=== PATIENT | female | born 1980 | race Caucasian/White ===

== ENCOUNTER → 2017-07-10 | Outpatient (CLI) | payer MEDICAID ==
[~2017-07-10] MED LIST: ALBUTEROL-200 PUFFS/ IH; AMOXIL500 M1 PO; BACTERICIN500 U/GM TP; BACTRIM DS 8001 TA1 PO; BACTRIM DS 8001 TAB PO; BUPRENORPHINE SL; CLINDAMYCIN HC300 MG PO; CLINDAMYCIN150 MG PO; EFFEXOR25 MG PO; FLEXERIL10 M1 PO; FLEXERIL5 MG PO; GABAPENTIN 400400 M1 PO; HYDROCODONE-APA1 TA1 PO; HYDROCODONE1 TABLET PO; IBU-8800 MG PO; LORTAB 5/500 501 TAB PO; MOTRIN600 M1 PO; NALOXONE SL; NAPROSYN 500MG500 MG PO; NOMEDS *; PERCOCET 10 MG1 EACH PO; PERCOCET 5/3251 EACH PO; PHENERGAN 25MG.25 M1 PO; SEPTRA DS 800 M1 TAB PO; SULFAMETHOXAZOL1 TA6 PO; ULTRAM50 MG PO; VICODIN 5/500 T1 TAB PO; VOLTAREN75 MG PO; XANAX 0.5MG TA0.5 MG PO; XANAX 1MG TABLET1 MG PO; ZOFRAN ODT4 MG PO
--- NOTE | 2017-07-10 16:39 | RADIOLOGY REPORT PS360 ---
HAND-RT 3 VIEWS HISTORY: Follow-up fracture RIGHT HAND PAIN ORDERING PHYSICIAN: Kyle Vela MD PATIENT AGE: 37 years COMPARISON: 07/07/2017 FINDINGS: Study is obtained through a splint which partially obscures the fracture. There is been no significant change in the distal fifth metacarpal fracture with 3 mm anterior displacement and anterior radial angulation of the distal fracture fragment. IMPRESSION: No change displaced distal fifth metacarpal fracture
== END ==
LOC: RAD 16:06
DX: M79.641 Pain in right hand (principal)

== ENCOUNTER 2017-07-22 14:42 | Inpatient (IN) | payer MEDICAID ==
[~2017-07-22] VITALS: Ht 157.5 cm; Wt 69.9 kg
--- NOTE | 2017-07-22 15:26 | Urgent Treatment Center Report ---
See Addendum History of Present Issue Date/Time Seen by Provider 07/22/17 1525 Visit Reason Pt arrived:Walked Presenting Problem:PT C/O BITE ON THE TOP OF HER LEFT HAND THAT IS RED, SWOLLEN, AND WARM TO TOUCH. PT ADVISES THAT IT HAS ALSO BEEN DRAINING X2 DAYS Location if Accident: Onset of symptoms date/time:/ or onset unknown for:MEDICAL HX UNKNOWN Have you (or family members/close friends) recently traveled outside the [place]? N If Yes, where/when: Have you had exposure to infectious disease within the past month? TB? Other? Specify: c/o left hand pain, swelling, redness. First noticed "what looked like a bug bite" to back of hand 2 days ago. Successfully "squeezed out thick white stuff" yesterday and swelling seemed better. woke up this morning with hand swelling worse and now extending into fingers, wrist and forearm. No fever but aches and chills. 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 Denies possible cause. Hasn't taken or tried anything else for symptoms. "I know it needs cut open and that is what I am here for. That, something for pain and antibiotics." Source patient Exam Limitations clinical condition (pain) ALLERGIES Coded Allergies: cephalexin (07/23/16) Home Medications Active Scripts Ondansetron (Zofran 4MG Odt) 4 MG PO Q6HP PRN NAUSEA AND VOMITING #20 TAB Prov: 07/23/16 SULFAMETHOXAZOLE W/TRIMETHOPRI (Bactrim Ds Tab) 2 TAB PO BID #28 TAB Prov: 09/05/14 HYDROCODONE 5MG/APAP 325MG (Hydrocodon-Acetaminophen 5-325) 1 TAB PO Q6HP PRN severe pain #7 TAB Prov: 09/05/14 Reported Medications Venlafaxine Hydrochloride (Effexor 25MG) 75 mg PO BID Albuterol (Albuterol-Hfa Inhaler) 1-2 PUFFS IH PRN #1 INH Alprazolam (Xanax 1MG) 1 MG PO TID Gabapentin (Gabapentin 400MG Capsule) 400 MG PO TID #90 BUPRENORPHINE HCL/NALOXONE HCL (Suboxone 2 MG-0.5 MG Sl Film) 2 SL History Medical History General CAD? No Angina: No [place]: No Hypertension? No Hyperlipidemia? No CHF? No DVT? No PE? No COPD? No Asthma? Yes Anemia? No GERD? No Gastric ulcers? No GI Bleed? No Hernia? No Thyroid Problems? No Hypothyroidism? No CVA? No Seizures? No Diabetes? No Renal Insuffiency? No UTI? No Stones? No BPH? No GB Disease: No Nephritic Syndrome? No Asplenia? No Hepatitis? Yes Sickle Cell Disease? No Arthritis? No Migraines? No Cataracts? No Glaucoma? No MRSA? Yes HIV? No TB? No Anxiety? No Depression? No Cancer? No More? No Immunization HX DT/Tetanus 11/04/10 Flu NEVER Pneumonia NEVER Surgical Hx Previous Surgery?Y L.THUMB SURGERY LEFT HAND DRAIN TUBE RIGHT SIDE FOR ABSCESS ABOVE KIDNEY Family History Family HX Diabetes No CAD Yes Hypertension Yes Hyperlipidemia No Cancer Yes TB No Social History Smoking Hx Smoker: Current Every Day Smoker Tobacco: Yes Type Cigarettes Packs/day < 1 Pack Alcohol Alcohol: No Review of Systems All Other Systems Reviewed and Negative Constitutional see HPI Musculoskeletal other (limited ROM left digits&wrist) Skin see HPI Psychiatric/Neurological paresthesia (left ring and middle fingers) Physical Exam Vital Signs Vital Signs Date Time Temp Pulse Resp B/P Pulse O2 O2 Flow FiO2 Ox Delivery Rate 07/22 1626 18 07/22 1504 98.8 94 18 122/82 98 General Appearance mild distress Respiratory Status No: respiratory distress. Cardiovascular no peripheral edema Peripheral Pulses Pulses normal Yes (radial) Extremities significant swelling dorsal surface left hand surrounding approx 2cm cutanous abscess at dorsal surface 4th/5th MCP extending distally to tips of 3rd & 4th digits as well as proximally to include wrist and a fourth of forearm; erythematous, hot; slightly reduced ROM 3rd & 4th digits Neurologic alert Skin intact, see extremity Medical Decision Making LABS/Meds/Orders Pt receiving controlled substance in ED? Yes Steve was queried for this patient? No Reason not queried - emergent pt cond=no time Risks/benefits of using a controlled substance for treatment were discussed w/pt by me Results/Orders Laboratory Tests 07/22/17 1630: WBC Pending, RBC Pending, Hgb Pending, Hct Pending, MCV Pending, RDW Pending, Plt Count Pending, Gran % Pending, Gran # Pending, Lymphocytes % Pending, Eosinophils % Pending, Basophils % Pending, Lymphocytes # Pending, Eosinophils # Pending, Basophils # Pending, PUBS MCHC Pending, MCH Pending Current Medication Orders Sig/Huyen Start time Last Medication Dose Route Stop Time Status Admin Hydrocodone Bitart/ 0 .STK-MED ONE 07/22 1622 DC Acetaminophen PO Hydrocodone Bitart/ 1 TAB ONCE ONE 07/22 1615 DC 07/22 Acetaminophen PO 07/22 1616 1626 Orders Procedure Date/time Status Decision to admit 07/22 1633 Active HAND-LT-3 VIEWS 07/22 161 Active CBC WITH AUTO DIFF 07/22 161 Active Consult MD Physician Consult 1 Consult/PCP Dr. Garcia, surgery Time Called 1528 Reason Pt. Condition Comments Called office. no surgeon in office today. Dr. Garcia hr shared services consultant. Office staff suggest having him paged. 1531: Dr. Garcia returned call. given location, discuss with ortho but if ortho not available, send to ER for possible admission w/ involvement of ortho and surgery. Physician Consult 2 Consult/PCP Dr. Lambert, ortho Time Called 1532 Reason Pt. Condition Comments Called ortho office. Dr. Barr out all week and Dr. Lambert in surgery this afternoon. Physician Consult 3 Consult/PCP Dr. Langley, ER MD Time Called 1535 Reason Pt. Condition Comments Discussed HPI, PMHx, exam and discussions with ortho and surgery. Dr. Langley Came to [facility] to evaluate pt. Agrees pt needs admitted w/ ortho consult. Suggest calling Dr. Villaseñor. Pt refusing admission and starts to leave AMA. "I just want this cut open today. I will go to . I will cut it open myself." Dr. Langley tries to calm pt and suggest at least CBC, xray and to see if ortho will come to bedside between cases and examine pt. Dr. Langley discusses the seriousness of this and the likelihood of it requiring a surgeon for I&D. Pt still irrate and wants to leave. "This is ridiculous. I have had enough to know it needs cut open and to know how to cut it open myself." Dr. Langley suggest talking to ortho and Dr. Villaseñor but if difficulty, sending pt to ER and she will work on admission. Dr. Langley returned to ER. Pt walked out of [facility] saying she was calling her to discuss this and didn't know if she would be staying or not. Refused to sign any papers at this time "because I don't know if I will stay". At this time, it is not known if pt will return. Tried to encourage tetanus vaccine. Pt refusing tetanus vaccine. Physician Consult 4 Consult/PCP Dr. Villaseñor, PCP Time Called 1615 Reason Admission Comments Discussed HPI, PMHx, exam, discussions w/ surgery, ortho and Dr. Langley, ER MD. Willing to admit. Request that I call care management, send patient upstairs and then he would place his own orders. Progress [facility] Progress Notes 1 Date 07/22/17 Time 1600 Comment pt returned to unit. Would like pain medication and wants me to discuss admission w/ Dr. Villaseñor, her primary care provider. [facility] Progress Notes 2 Date 07/22/17 Time 1620 Comment Care Mgmnt paged [facility] Progress Notes 3 Date 07/22/17 Time 1632 Comment House called. Aware care mgmt did not return call. marley aware of plan for admission. Rm 211. Departure Departure Time of Disposition 1703 Disposition Still a Patient Clinical Impression Primary Impression: Abscess of left hand including fingers Secondary Impressions: Cellulitis of multiple sites of left hand and fingers Condition STABLE Referrals River Villaseñor MD (Family) Additional Instructions admit to room 211 at 1705
[2017-07-22 17:00] LABS: LYMPH # 1.3 K/mm3 (0.7-4.5); LYMPH % 15.5 % (10-50.0)
[2017-07-22 17:07] LABS: HEMOGLOBIN 12.1 g/dL (12.2-16.2)
--- NOTE | 2017-07-22 17:15 | RADIOLOGY REPORT PS360 ---
HAND-LT-3 VIEWS HISTORY: Pain and swelling abscess left hand x 2-3 days ORDERING PHYSICIAN: River Villaseñor MD PATIENT AGE: 37 years COMPARISON: None FINDINGS: There is diffuse soft tissue swelling along the dorsum of the left hand. No fracture or dislocation. No lytic changes. No soft tissue gas. No radio opaque foreign body. There is an old fracture to base of the first metacarpal. IMPRESSION: Diffuse soft tissue swelling with no acute bony pathology
--- NOTE | 2017-07-22 17:15 | RADIOLOGY REPORT PS360 ---
HAND-LT-3 VIEWS HISTORY: Pain and swelling abscess left hand x 2-3 days ORDERING PHYSICIAN: River iVllaseñor MD PATIENT AGE: 37 years COMPARISON: None FINDINGS: There is diffuse soft tissue swelling along the dorsum of the left hand. No fracture or dislocation. No lytic changes. No soft tissue gas. No radio opaque foreign body. There is an old fracture to base of the first metacarpal. IMPRESSION: Diffuse soft tissue swelling with no acute bony pathology
[2017-07-22 17:23] VITALS: BP 141/88
[2017-07-22 17:38] VITALS: BP 141/88
--- NOTE | 2017-07-22 18:10 | HISTORY AND PHYSICAL REPORT ---
Demographics: Admit date: 07/22/17 Chief complaint: Left hand swelling and pain PRIMARY DIAGNOSIS: ABSCESS & CELLULITIS OF LEFT HAND Allergies: Coded Allergies: cephalexin (07/23/16) History of present illness: History of present illness: 37-year-old white female with history of "lots of staph infections" who presented to the urgent treatment Center with left hand swelling, abscess formation and pain. Had red streaking into the dorsum of the hand from a puncture wound site on the dorsum of the left hand between the fourth and fifth fingers, and was admitted to hospital for IV antibiotics, orthopedic consultation and further diagnostic testing. Past medical history: Family HX Diabetes No CAD Yes Hypertension Yes Hyperlipidemia No Cancer Yes TB No Immunization HX DT/Tetanus 11/04/10 Flu NEVER Pneumonia NEVER TB Test in last year No General CAD? No Angina: No [place]: No Hypertension? No Hyperlipidemia? No CHF? No DVT? No PE? No COPD? No Asthma? Yes Anemia? No GERD? No Gastric ulcers? No GI Bleed? No Hernia? No Thyroid Problems? No Hypothyroidism? No CVA? No Seizures? No Diabetes? No Renal Insuffiency? No UTI? No Stones? No BPH? No GB Disease: No Nephritic Syndrome? No Asplenia? No Hepatitis? Yes Sickle Cell Disease? No Arthritis? No Migraines? No Cataracts? No Glaucoma? No MRSA? Yes HIV? No TB? No Anxiety? Yes Depression? No Cancer? No More? No Past Surgical HX Previous Surgery?Y L.THUMB SURGERY LEFT HAND DRAIN TUBE RIGHT SIDE FOR ABSCESS ABOVE KIDNEY Current home meds: Reported Medications Albuterol (Albuterol-Hfa Inhaler) 1-2 PUFFS IH PRN #1 INH Social Hx: Smoking HX Tobacco Yes Type Cigarettes Packs/day < 1 PACK Alcohol Alcohol: No Hx of Drug Use Drug Use? Yes Drug(s) of Choice: previous use per patient Patien't marital status is single Patient's support system is fair Review of systems: Constitutional fever, malaise. Respiratory No: no symptoms reported. Cardiovascular No no symptoms reported Gastrointestinal/Abdominal No no symptoms reported Genitourinary no symptoms reported. Musculoskeletal see HPI. Neurological No: see HPI. Exam: Lab data for last 24 hours: Laboratory Tests 07/22/17 1630: Sodium 136, Potassium 2.9 *L, Chloride 103, Carbon Dioxide 23, BUN 9, Creatinine 0.7, Estimated Creat Clear 129, Estimated GFR (MDRD) 94, Glucose 94, Calcium 8.0 L, Total Bilirubin 0.5, AST 59 H, ALT 112 H, Alkaline Phosphatase 70, Total Protein 6.8, Albumin 3.2 L, Globulin 3.6 H, Albumin/Globulin Ratio 0.9 L, WBC 8.4, RBC 4.22, Hgb 12.1 L, Hct 36.5 L, MCV 86.7, RDW 14.1, Plt Count 374, MPV 7.5, Gran % 77.4, Gran # 6.5, Lymphocytes % 15.5, Monocytes % 5.8, Eosinophils % 1.1, Basophils % 0.2, Lymphocytes # 1.3, Monocytes # 0.5, Eosinophils # 0.1, Basophils # 0.0, PUBS MCHC 32.7, MCH 28.3 Microbiology 07/22 UNK BLOOD: Anaerobic Blood Culture - ORD 07/22 UNK BLOOD: Aerobic Blood Culture - ORD 07/22 UNK BLOOD: Anaerobic Blood Culture - ORD 07/22 UNK BLOOD: Aerobic Blood Culture - ORD Admission vital signs: 1ST Vital Signs Result Date Time Pulse Ox 98 07/22 1504 B/P 122/82 07/22 1504 Temp 98.8 07/22 1504 Pulse 94 07/22 1504 Resp 18 07/22 1504 O2 Delivery ROOM AIR 07/22 1723 Additional information: Patient is alert. Oriented. Cardiopulmonary exam unremarkable. Abdomen soft nontender, she has no edema. No neurologic deficits. Left hand is reddened and swollen with abscess formation as described in history of present illness. Plan: Problem List 1. Cellulitis of multiple sites of left hand and fingers 2. Abscess of left hand including fingers 3. Hypokalemia Plan: Admit to hospital. Orthopedic consultation. Patient has long history of substance abuse and mental illness, my office records indicate she takes Abilify but she did not report this to the nursing intake staff. Urine drug screen given history of IV drug use. Somewhat suspicious location/ mechanism of abscess. Hypokalemia noted. Replace this orally. at 8621
--- NOTE | 2017-07-22 18:42 | CONSULT NOTE ---
Consultation findings: Referring physician: Dr. Villaseñor Date of examination: 07/22/17 Time of examination: 183 Exam findings: I went up to see the patient on second floor for orthopedic consultation regarding her left hand cellulitis/abscess. Patient is not in her room and the staff on the floor does not know her whereabouts. Apparently she has returned from the x-ray a short while ago and they think she may have gone out of hospital after that without informing anybody. I was called again 15-20 minutes later and was informed that the patient has returned to the floor. 07/22/2017; 19:00 Chief complaint: Left hand swelling and pain PRIMARY DIAGNOSIS: CELLULITIS/ ABSCESS, LEFT HAND Allergies: cephalexin (07/23/16) History of present illness: Patient is a 37-year-old female admitted to hospital from the urgent treatment center for management of cellulitis/abscess left hand. She is giving a history of pain and swelling over the back of her left hand starting a couple of days ago apparently following a spider bite. She says she has history of "lots of staph infections" in the past requiring surgical drainage. She reports little bit of discharge from it yesterday but none today. She reports a throbbing pain over the hand and also reports intermittent fevers. She has history of past IV drug abuse but says he has not been injecting herself this time. She localizes the swelling to the back of the hand at the level of the fifth metacarpal head. She also reports surroundings redness and swelling on the hand and extending onto the fourth and fifth fingers. She was admitted to hospital for IV antibiotics, orthopedic consultation and further diagnostic testing. Past medical history: Family HX Diabetes No CAD Yes Hypertension Yes Hyperlipidemia No Cancer Yes TB No Immunization HX DT/Tetanus 11/04/10 Flu NEVER Pneumonia NEVER TB Test in last year No General CAD? No Angina: No [place]: No Hypertension? No Hyperlipidemia? No CHF? No DVT? No PE? No COPD? No Asthma? Yes Anemia? No GERD? No Gastric ulcers? No GI Bleed? No Hernia? No Thyroid Problems? No Hypothyroidism? No CVA? No Seizures? No Diabetes? No Renal Insuffiency? No UTI? No Stones? No BPH? No GB Disease: No Nephritic Syndrome? No Asplenia? No Hepatitis? Yes Sickle Cell Disease? No Arthritis? No Migraines? No Cataracts? No Glaucoma? No MRSA? Yes HIV? No TB? No Anxiety? Yes Depression? No Cancer? No More? No Past Surgical HX Previous Surgery?Y L.THUMB SURGERY LEFT HAND DRAIN TUBE RIGHT SIDE FOR ABSCESS ABOVE KIDNEY Current home meds: Albuterol (Albuterol-Hfa Inhaler) 1-2 PUFFS IH PRN #1 INH Social Hx: Smoking HX Tobacco Yes Type Cigarettes Packs/day < 1 PACK Alcohol Alcohol: No Hx of Drug Use Drug Use? Yes Drug(s) of Choice: previous use per patient Patien't marital status is single Patient's support system is fair Review of systems: Constitutional: fever, malaise. Respiratory: No symptoms reported. Cardiovascular: No symptoms reported Gastrointestinal/Abdominal: No symptoms reported Genitourinary: no symptoms reported. Musculoskeletal: see HPI. Neurological: No symptoms reported. Exam: General Appearance: No acute distress; well built ENT: mucous membranes moist Neck: normal inspection, non-tender, supple, full range of motion, trachea central Respiratory: trachea midline, chest symmetrical, non tender; No respiratory distress. Normal breath sounds bilaterally, lungs clear to auscultation. Cardiovascular: regular rate/rhythm, no peripheral edema, no gallop, no JVD, no murmur, no rub, normal peripheral pulses Gastrointestinal: Abdomen is soft and nontender, normal bowel sounds over all 4 quadrants, no organomegaly, no CVA tenderness. Neurologic: alert, normal exam, oriented x 3; cranial nerves II-12: intact Mental status: normal mood/affect Skin: intact, multiple well-healed scars over both upper extremities; normal color, warm/dry On examination of her left hand, she has diffuse redness and swelling over the back of the left hand and over the fourth and fifth fingers. There is a more localized swelling over the fifth metacarpal head and neck. She has diffuse tenderness over the back of the hand with more severe tenderness on the localized swelling. The swelling over the fifth metacarpal neck is fluctuant. She has couple of villasenor over the swelling likely from the bite. There is no active discharge at this time. The hand is warm to touch. She has fairly good range of wrist and finger movements. Radial and ulnar pulses are palpable 2+ bilaterally. Capillary refill is brisk. Sensation is grossly intact. Multiple well-healed scars noted all over her arm. Imaging: FINDINGS: There is diffuse soft tissue swelling along the dorsum of the left hand. No fracture or dislocation. No lytic changes. No soft tissue gas. No radio opaque foreign body. There is an old fracture to base of the first metacarpal. IMPRESSION: Diffuse soft tissue swelling with no acute bony pathology Laboratory Tests 07/22/17 1630: Sodium 136, Potassium 2.9 *L, Chloride 103, Carbon Dioxide 23, BUN 9, Creatinine 0.7, Estimated Creat Clear 129, Estimated GFR (MDRD) 94, Glucose 94, Calcium 8.0 L, Total Bilirubin 0.5, AST 59 H, ALT 112 H, Alkaline Phosphatase 70, Total Protein 6.8, Albumin 3.2 L, Globulin 3.6 H, Albumin/Globulin Ratio 0.9 L, WBC 8.4, RBC 4.22, Hgb 12.1 L, Hct 36.5 L, MCV 86.7, RDW 14.1, Plt Count 374, MPV 7.5, Gran % 77.4, Gran # 6.5, Lymphocytes % 15.5, Monocytes % 5.8, Eosinophils % 1.1, Basophils % 0.2, Lymphocytes # 1.3, Monocytes # 0.5, Eosinophils # 0.1, Basophils # 0.0, PUBS MCHC 32.7, MCH 28.3 Microbiology 07/22 1735 BLOOD: Anaerobic Blood Culture - RECD 07/22 1735 BLOOD: Aerobic Blood Culture - RECD 07/22 1735 BLOOD: Anaerobic Blood Culture - RECD 07/22 1735 BLOOD: Aerobic Blood Culture - RECD 1ST Vital Signs Result Date Time Pulse Ox 98 07/22 1504 B/P 122/82 07/22 1504 Temp 98.8 07/22 1504 Pulse 94 07/22 1504 Resp 18 07/22 1504 O2 Delivery ROOM AIR 07/22 1723 Impression: 1. Cellulitis, left hand 2. Abscess, left hand 3. Hypokalemia Recommendations: I reviewed the clinical, x-ray and laboratory findings with the patient. Clinically she has abscess over the dorsum of the hand with surrounding cellulitis. Her white cell count is within normal range at 8.4 with a normal differential count. Her serum potassium is low at 2.9. She is scheduled to receive IV vancomycin. I have discussed the diagnosis, natural history and management options including both nonsurgical and surgical. Given the localized abscess on the back of the hand, I have recommended an incision and drainage. I have discussed the procedure, risks and benefits and alternatives in detail. The complications discussed include but are not limited to injury to blood vessels, nerves, tendons and ligaments, bleeding, incisional scar (cosmesis), continued pain, adhesions, hypertrophic scarring, DVT/PE, finger stiffness, CRPS (complex regional pain syndrome- pain, sensory and temperature changes, swelling and stiffness), painful scar, incomplete relief of pain, incomplete return of function and likely need for further surgery in future and also the risks of anesthesia including heart attack, stroke, and . I have discussed how there is a small but real possibility of loss of use of the arm, loss of the limb [ amputation] or loss of life itself. I have also explained how additional surgery may be required if there are any complications or the condition fails to improve. We have also discussed the postoperative pain management, recovery and rehabilitation, the likely need for physical/hand therapy, the possibility of stiffness, chronic pain and we've also discussed the option of nonsurgical treatment. The patient expressed a full understanding and has asked appropriate questions. All her questions were answered by me and she verbalized a good understanding. She desires to proceed with the proposed surgery of incision and drainage of abscess left hand. She has eaten dinner tonight and also has hypokalemia. Therefore I would take her to surgery tomorrow morning. I have advised elevation, continuation of IV antibiotics, n.p.o. from midnight, repeat serum potassium levels tomorrow. Medical management as per Dr. Villaseñor.
[2017-07-22 19:20] VITALS: BP 116/64
[2017-07-22 19:30] VITALS: BP 116/64
--- NOTE | 2017-07-22 23:23 | RADIOLOGY REPORT PS360 ---
CHEST(2 VIEWS-NOT PORTABLE) HISTORY: fever ORDERING PHYSICIAN: River Villaseñor MD PATIENT AGE: 37 years COMPARISON: None available FINDINGS: The cardiomediastinal silhouette and pulmonary vascularity are within normal limits. The lungs are clear without infiltrates, suspicious nodules, or pleural effusions. Probable nipple artifact left lower lung zone. Garment artifact is present No acute bony abnormalities. IMPRESSION: No acute finding
[2017-07-23] VITALS (13 sets, daily range): BP systolic 115–180; BP diastolic 63–100
[2017-07-23 06:42] LABS: LYMPH # 1.3 K/mm3 (0.7-4.5); LYMPH % 22.2 % (10-50.0)
[2017-07-23 06:51] LABS: HEMOGLOBIN 10.7 g/dL (12.2-16.2)
--- NOTE | 2017-07-23 07:12 | PHARMACY CLINIC NOTE ---
Patient Demographics Patient Demographics Admission date: 07/22/17 Date: 07/23/17 Time: 0712 Allergies Coded Allergies: cephalexin (07/23/16) HEIGHT- FT: 5 IN: 2.00 K.882 VTE General Information Labs: Laboratory Tests 07/23 07/22 0620 1630 Hematology Hgb (12.2 - 16.2 g/dL) 10.7 L 12.1 L Hct (37.0 - 47.0 %) 32.2 L 36.5 L Plt Count (142 - 424 K/mm3) 196 374 Disclaimer The following section includes nursing documentation that has been pulled in for pharmacy review. Patient's VTE score: 2 Patient's VTE Risk: VERY LOW RISK Clinical trial participant? No VTE prophylaxis NQF [id number] VTE prophylaxis ordered? Yes Type of prophylaxis/treatment: VIVIAN at 0712
--- NOTE | 2017-07-23 07:58 | ACUTE CARE PROGRESS NOTE (QUA) ---
Progress Notes Subjective Date 07/23/17 Time 0740 Note Patient continues to have significant LEFT hand pain. She was seen by Dr. Lambert last evening with plan for incision and drainage of LEFT hand abscess today. She has not had any fevers through the night. Alert and oriented 3. S1, S2, no murmurs. No lower extremity edema. Pulses 2+ bilaterally. Lung sounds clear and equal throughout. Abdomen soft and nontender with normoactive bowel sounds. LEFT hand abscess proximal to fourth and fifth MCP joints, + edema, + erythema, significantly tender, streaking has improved. Patient/family reports: pain Nursing reports: nursing staff report patient LEFT the floor with her for approximately 1 hour last night and appeared to be altered on return to the floor Objective Findings Last VS-Temp:98.0 B/P:180/86 Pulse:69 Resp:16 SaO2:95 ROOM AIR Last weight lbs:154 oz:1 K.882 Method:Bed Scales Reviewed: medications, vital signs, lab results, radiology report Assessment/Plan Problem List 1. Cellulitis of multiple sites of left hand and fingers 2. Abscess of left hand including fingers 3. Hypokalemia Patient condition Stable Plan: see below This inpt stay is expected to cross 2 MNs from start of care Yes Comments: Patient has a significant history of IV drug use. She has been unable to provide a urine sample since her admission. She was started on Abilify approximately 1 month ago; however she stopped taking it after one dose. She was seen in Suboxone clinic on Saturday and was given 1 dose while awaiting a PA for ongoing treatment. Continue IV antibiotics. Incision and drainage of LEFT hand abscess today. Consult care management to discuss outpatient treatment options. Antibiotic Stewardship (2) Current Culture Results Microbiology 07/22 173 BLOOD: Anaerobic Blood Culture - RECD 07/22 1735 BLOOD: Aerobic Blood Culture - RECD at 0758
--- NOTE | 2017-07-23 09:35 | CONSULT NOTE ---
Pharmacokinetic Consult Date of consult: 07/23/17 Time of consult: 930 Referring provider: DR. HOLDEN Reason for consult: VANCOMYCIN DOSING Allergies: Coded Allergies: cephalexin (07/23/16) Home Medications: Reported Medications Albuterol (Albuterol-Hfa Inhaler) 1-2 PUFFS IH PRN #1 INH Height (feet): 5 Height (inches): 2.00 Medical History: CAD? No Angina: No [place]: No Hypertension? No Hyperlipidemia? No CHF? No DVT? No PE? No COPD? No Asthma? Yes Anemia? No GERD? No Gastric ulcers? No GI Bleed? No Hernia? No Thyroid Problems? No Hypothyroidism? No CVA? No Seizures? No Diabetes? No Renal Insuffiency? No UTI? No Stones? No BPH? No GB Disease: No Nephritic Syndrome? No Asplenia? No Hepatitis? Yes Sickle Cell Disease? No Arthritis? No Migraines? No Cataracts? No Glaucoma? No MRSA? Yes HIV? No TB? No Anxiety? Yes Depression? No Cancer? No More? No Labs: Laboratory Tests 07/23/17 0620: Sodium 144, Potassium 2.8 *L, Chloride 114 H, Carbon Dioxide 20 L, BUN 8, Creatinine 0.7, Estimated Creat Clear 121, Estimated GFR (MDRD) 94, Glucose 96, Calcium 6.2 L, WBC 5.7, RBC 3.68 L, Hgb 10.7 L, Hct 32.2 L, MCV 87.4, RDW 14.2, Plt Count 196, MPV 8.2, Gran % 70.1, Gran # 4.0, Lymphocytes % 22.2, Monocytes % 5.8, Eosinophils % 1.6, Basophils % 0.4, Lymphocytes # 1.3, Monocytes # 0.3, Eosinophils # 0.1, Basophils # 0.0, PUBS MCHC 33.4, MCH 29.2 07/22/17 1630: Sodium 136, Potassium 2.9 *L, Chloride 103, Carbon Dioxide 23, BUN 9, Creatinine 0.7, Estimated Creat Clear 129, Estimated GFR (MDRD) 94, Glucose 94, Calcium 8.0 L, Total Bilirubin 0.5, AST 59 H, ALT 112 H, Alkaline Phosphatase 70, Total Protein 6.8, Albumin 3.2 L, Globulin 3.6 H, Albumin/Globulin Ratio 0.9 L, WBC 8.4, RBC 4.22, Hgb 12.1 L, Hct 36.5 L, MCV 86.7, RDW 14.1, Plt Count 374, MPV 7.5, Gran % 77.4, Gran # 6.5, Lymphocytes % 15.5, Monocytes % 5.8, Eosinophils % 1.1, Basophils % 0.2, Lymphocytes # 1.3, Monocytes # 0.5, Eosinophils # 0.1, Basophils # 0.0, PUBS MCHC 32.7, MCH 28.3 Microbiology 07/22 1735 BLOOD: Anaerobic Blood Culture - RECD 07/22 1735 BLOOD: Aerobic Blood Culture - RECD 07/22 1735 BLOOD: Anaerobic Blood Culture - RECD 07/22 1735 BLOOD: Aerobic Blood Culture - RECD Problem List: 1. Cellulitis of multiple sites of left hand and fingers Plan: BASED ON PATIENT FACTORS, RECOMMEND VANCOMYCIN 1500 MG IV ONCE, FOLLOWED BY VANCOMYCIN 1 GM IV Q12H. WILL OBTAIN VANCOMYCIN TROUGH LEVEL TOMORROW PRIOR TO 4TH DOSE. PHARMACY WILL FOLLOW DAILY AND ADJUST APPROPRIATE. at 0935
--- NOTE | 2017-07-23 17:38 | Anesthesia Record ---
Anesthesia Record Part I Total IV fluids: 500 EBL (ml): 5 Urine Output: 0 B/P: 131/85 % SaO2: 97 Pulse: 80 Resps: 16 Temp: 98.1 Patient is: Drowsy, Stable Stable to PACU at: 1730 at 1738
--- NOTE | 2017-07-23 17:39 | Anesthesia Record ---
Anesthesia Record Part II Discharge time: 1800 Destination: Second Floor PACU nurse assessment review? Yes Patient is: Stable Anesthesia complications? No at 1734
--- NOTE | 2017-07-23 22:46 | Operative Note ---
Procedure/Operative Record Date of Procedure: 07/23/17 Referring physician: Dr. Villaseñor Pre-op diagnosis: 1. Abscess, left hand 2. Cellulitis, left hand Post-op diagnosis: 1. Abscess, left hand 2. Cellulitis, left hand Procedure performed: Incision and drainage, abscess left hand Surgeon: Kayode Lambert MD Phlebotomy Services Technician(s): Doris Wright Anesthesia: General Indications: Patient is a 37-year-old female who developed pain and swelling over the dorsum of the hand following an apparent spider bite few days ago. She presented to the ER with an abscess over the dorsum of the hand and was admitted for management of the same. She presented to the emergency department yesterday with increasing swelling and redness over the back of the hand. Evaluation confirmed an abscess over the dorsum of left hand in the region of the fifth metacarpal neck. X-rays of her hand showed soft tissue swelling without any bony involvement. She was admitted for management of the same including IV antibiotics and incision and drainage. Incision and drainage of the abscess was indicated to treat the infection, improve the pain and function and is the standard of care for her management. Findings: A small abscess over the dorsum of the hand at the level of the fifth metatarsal neck with about 2 mL of castro pus noted. No obvious tendon, bone or joint involvement was noted. There was cellulitis over the dorsum of the hand extending onto the fourth and fifth fingers. Description of procedure: On the day of the procedure the patient was met on the floor and I again discussed the diagnosis, natural history and management options in detail including both nonsurgical and surgical. Following admission yesterday, she was started on IV vancomycin given the history of multiple previous staphylococcal abscesses. The procedure of incision and drainage under anesthesia was discussed with the patient. The complications discussed including but not limited to- infection, bleeding, injury to nerves, blood vessels, tendons, failure to eradicate the infection, incomplete recovery, persistent pain, CRPS, DVT/PE, likely need for further surgery and anesthetic complications including stroke, heart attack and even . Patient wished to proceed with the surgical intervention. All her questions were answered and she verbalized a good understanding. The limb was appropriately marked. Consent form was reviewed and signed. Patient was brought to the operating room and placed supine on the operating table. The left upper extremity was placed over a hand table. All the bony prominences were appropriately padded. A general anesthesia was administered by the admission specialist. A well-padded tourniquet cuff was placed over the left upper arm. The left upper extremity was prepped and draped in usual sterile fashion. A preprocedure timeout was performed as per protocol. The limb was elevated but not exsanguinated and tourniquet inflated to 250 mmHg. Please see nursing notes for tourniquet time. The skin incision was made directly over the swelling on the dorsum of the hand with drainage of acstro pus. About 2 mL of pus was drained. A culture swab was obtained. After taking the swab, the abscess cavity was explored digitally and all the adhesions were broken down. The abscess cavity was curetted out and granulation tissue/debris removed. The wound was thoroughly irrigated with normal saline. The abscess cavity was packed with quarter inch iodoform gauze. The tourniquet was released and hemostasis was confirmed. The incision was left open for drainage and to heal by secondary intention. Sterile dressings and pressure bandages were applied. Patient was then reversed from the anesthetic and transferred onto the bed. She was then safely transported to the postoperative recovery area in stable condition. She tolerated the procedure well and there were no immediate complications. The swab , needle and instrument counts were correct at the end of the procedure as per the scrub team. Postoperatively we will continue IV vancomycin and await culture results for any changes as needed. Patient was advised to keep the limb elevated and mobilize the fingers. EBL (ml): 2 Implant: None Complications: None Specimens: Culture swab from the abscess cavity
[2017-07-24] VITALS (7 sets, daily range): BP systolic 101–125; BP diastolic 56–85
[2017-07-24 12:41] LABS: HBsAg Screen Negative (Negative); Hep A Ab, IgM Negative (Negative); Hep B Core Ab, IgM Indeterminate (Negative); Hep C Virus Ab >11.0 (0.0-0.9)
--- NOTE | 2017-07-24 12:58 | DISCHARGE SUMMARY STANDARD ---
Demographics Admit date: 07/22/17 Discharge date: 07/24/17 History of present illness History of present illness 37-year-old white female with history of "lots of staph infections" who presented to the urgent treatment Center with left hand swelling, abscess formation and pain. Had red streaking into the dorsum of the hand from a puncture wound site on the dorsum of the left hand between the fourth and fifth fingers, and was admitted to hospital for IV antibiotics, orthopedic consultation and further diagnostic testing. Hospital Course Hospital Course: Patient was admitted, x-ray of the hand was done, orthopedic consult was done, recommended I&D in the OR. This was accomplished, good results. Please see operative note and orthopedic followup. This morning patient is functional with all ADL activities. Dressing changes were initiated and she was discharged home with Bactrim orally and followup with orthopedic clinic. Discharge diagnoses Problem List 1. Cellulitis of multiple sites of left hand and fingers 2. Abscess of left hand including fingers 3. Hypokalemia Medications Medications: Discharge meds are as noted. Follow up Follow up in office in: 5 DAYS with: ANNALISA GARRIDO MD at [phone]
--- NOTE | 2017-07-24 12:58 | ACUTE CARE PROGRESS NOTE ---
Progress note Date: 07/24/17 Assessment: Subjective: Patient is status post incision and drainage abscess left hand, post op day # 1. She says she is doing well and her pain is well controlled with medication. She is eating and drinking well. She says she is able to move her fingers better than before surgery. Objective: I reviewed the vital signs, medication, labs, medical progress note and discussed with the nursing staff. Vital Signs Result Date Time Pulse Ox 98 07/24 1200 B/P 125/78 07/24 1200 O2 Delivery ROOM AIR 07/24 1200 Temp 98.7 07/24 1200 Pulse 60 07/24 1200 Resp 20 07/24 1200 Exam: General appearance: Age-appropriate female, alert and active Cardiovascular: regular rate & rhythm Respiratory: clear to auscultation bilaterally ABD: soft, non tender, non-distended, normal bowel sounds. Extremities: The left hand is in surgical dressings. The dressings are clean and dry and intact. Her finger swelling has improved compared to yesterday. She has good range of finger movements. Distal neurovascular status is intact. Impression: 1. Cellulitis of multiple sites of left hand and fingers 2. Abscess of left hand including fingers 3. Hypokalemia Plan: I reviewed the surgical procedure on finding with the patient. I advised her to continue elevation and mobilization of the wrist and fingers. From an orthopedic standpoint, patient can be discharged with antibiotics for staph coverage. Definitive culture results are likely to be available tomorrow. She will follow-up with in the office in 1-2 days time. Medical management as per Dr. Villaseñor. Antibiotic Stewardship (2) Current Culture Results Microbiology 07/23 2030 HAND: Abscess Culture - RECD 07/23 1708 HAND: Antimicrobic Susceptibility - ORD 07/23 1708 HAND: Anaerobic Culture Result 4 - ORD 07/23 1708 HAND: Anaerobic Culture Result 3 - ORD 07/23 1708 HAND: Anaerobic Culture Result 2 - ORD 07/23 1708 HAND: Anaerobic Culture Result 1 - ORD 07/23 1708 HAND: Anaerobic Culture - ORD 07/22 1735 BLOOD: Anaerobic Blood Culture - RECD 07/22 1735 BLOOD: Aerobic Blood Culture - RECD
--- OUTSIDE RECORDS SUMMARY | 2017-08-14 05:27 | External Medical Summary Rpt ---
Author Author [facility] Address Unknown Phone Purpose Continuity of Care Document - 07-22-2017 through 2016
--- OUTSIDE RECORDS SUMMARY | 2017-08-14 05:27 | External Medical Summary Rpt ---
Author Author EJ Address Unknown Phone [email or web address] Immunization Name Date Rout CVX Reac Dose Comm Prov Is Faci e tion ent ider Refu lity Give sed n Tdap 07-1 115 0.5 Hist [facility] No [facility] , 6-20 mL oric 1 1 Adso 15 al rbed Info rmat ion - Sour ce Unsp ecif ied
--- OUTSIDE RECORDS SUMMARY | 2017-08-14 05:27 | External Medical Summary Rpt ---
Author Author EJ Address Unknown Phone [email or web address] Immunization Name Date Rout CVX Reac Dose Comm Prov Is Faci e tion ent ider Refu lity Give sed n Tdap 07-1 115 0.5 Hist [facility] No [facility] , 6-20 mL oric 1 1 Adso 15 al rbed Info rmat ion - Sour ce Unsp ecif ied
== END 2017-07-24 14:10 | disposition home or self-care (01) | DRG 603 ==
LOC: UTC 14:42 → 2ND 16:39 → UTC 16:39 → 2ND 17:14
PROVIDERS: Internal Medicine Adolescent Medicine; Nurse Practitioner Family
PROC: 0H9GXZZ Drainage of Left Hand Skin, External Approach (ICD-10-PCS; principal; 2017-07-22)
DX: L02.512 Cutaneous abscess of left hand (principal); B95.4 Other streptococcus as the cause of diseases classified elsewhere; E87.6 Hypokalemia